=== PATIENT | female | born 1970 | race Caucasian/White ===

== ENCOUNTER → 2020-12-16 13:12 | Outpatient (CLI) | payer OTHER, SELFPAY ==
[2020-12-16 14:09] LABS: D-Dimer Quantitative (DVT/PE) <= 0.27 FEU/ug/m (0.27-0.49)
== END ==
PROVIDERS: PCP Family Medicine; Referring Provider Nurse Practitioner; Visit Provider Nurse Practitioner
DX: R07.89 Other chest pain (principal); R06.02 Shortness of breath; U07.1 COVID-19
CPT/HCPCS: 85379